=== PATIENT | male | born 1965 | race Caucasian/White ===

== ENCOUNTER 2025-01-31 12:47 | Emergency (ER) | payer MEDICAID ==
[~2025-01-31] VITALS: Ht 167.6 cm; Wt 61.0 kg
[2025-01-31 12:50] VITALS: O2SAT 99
[2025-01-31 15:04] LABS: BASOPHILS % 1.2 % (0.0-2.0); EOSINOPHILS % 14.2 % (0.0-5.0); HEMATOCRIT. 31.0 % (42.0-52.0); HEMOGLOBIN. 10.2 g/dL (14.0-18.0); LYMPHOCYTES % 17.9 % (20.0-50.0); MEAN PLATELET VOLUME 6.4 fl (7.4-10.4); MONOCYTES % 12.6 % (2.0-8.0); NEUTROPHILS % 54.1 % (40.0-76.0); PLATELET 315 x1000/uL (130-400); RED BLOOD CELL COUNT 3.64 mill/uL (4.7-6.1); RED CELL DISTRIBUTION WIDTH 15.6 % (11.6-14.6)
[2025-01-31 15:17] LABS: CREATININE 0.8 mg/dL (0.6-1.3); UREA NITROGEN BLOOD 14 mg/dL (9-23)
[2025-01-31 16:36] VITALS: BP 150/89; PULSE 72; RESP 18; TEMP 36.4; O2SAT 98
== END 2025-01-31 16:37 | disposition home or self-care (01) ==
LOC: ER 12:47 → EDBD 12:47 → ER 16:37
DX: S02.40EA Zygomatic fracture, right side, initial encounter for closed fracture (principal); S00.83XA Contusion of other part of head, initial encounter; Y04.0XXA Assault by unarmed brawl or fight, initial encounter; X58.XXXA Exposure to other specified factors, initial encounter; Y92.89 Other specified places as the place of occurrence of the external cause; Y99.8 Other external cause status
CPT/HCPCS: 36415; 70486; 80048; 85025; 99284